=== PATIENT | female | born 1950 | race Caucasian/White ===

== ENCOUNTER 2017-08-15 17:32 | Emergency (ER) | payer MEDICARE ==
[~2017-08-15] VITALS: Ht 162.6 cm; Wt 72.6 kg
[~2017-08-15 17:32] MED LIST: ASP81CT; ASP81CT PO; CLOP75TA PO; GNT.3OP5 OP; LISI10TA PO; LISI20TA; LOVA20TA63; METF-380; METO25TA PO; SIMV20TA3 PO
--- OUTSIDE RECORDS SUMMARY | 2017-08-15 17:38 | XMS REPORT | Continuity of Care Document ---
Author Author [facility] Organization [facility] Address Unknown Phone Unavailable Allergies Active Description Code Type Severity Reaction Onset Reported/Identified Relationship to Patient Clinical Status Yes NKANo Known Allergies NKA Miscellaneous Allergy Mild N/A 07/24/2009 Medications There is no data. Problems Date Dx Coded Attending Type Code Diagnosis Diagnosed By 05/03/2008 250.00 DIABETES II CONTROLLED 05/03/2008 401.1 HYPERTENSION, BENIGN ESSENTIAL 05/03/2008 250.00 DIABETES II CONTROLLED 05/03/2008 401.1 HYPERTENSION, BENIGN ESSENTIAL 05/03/2008 YI CHACON DO 250.00 DIABETES II CONTROLLED 05/03/2008 YI CHACON DO 401.1 HYPERTENSION, BENIGN ESSENTIAL 05/03/2008 ASAEL WOMACK APRN S 250.00 DIABETES II CONTROLLED 05/03/2008 ASAEL WOMACK APRN 401.1 HYPERTENSION, BENIGN ESSENTIAL 05/03/2008 RADAMES MUÑOZ APRN R 250.00 DIABETES II CONTROLLED 05/03/2008 RADAMES MUÑOZ APRN R 401.1 HYPERTENSION, BENIGN ESSENTIAL 05/03/2008 YI CHACON DO K 250.00 DIABETES II CONTROLLED 05/03/2008 YI CHACON DO K 401.1 HYPERTENSION, BENIGN ESSENTIAL 05/03/2008 JOSE ALBERTO STALLINGS APRN 250.00 DIABETES II CONTROLLED 05/03/2008 JOSE ALBERTO STALLINGS APRN 401.1 HYPERTENSION, BENIGN ESSENTIAL 05/10/2008 716.90 ARTHRITIS/ ARTHROPATHY, UNSPECIFIED 05/10/2008 716.90 ARTHRITIS/ ARTHROPATHY, UNSPECIFIED 05/10/2008 YI CHACON DO 716.90 ARTHRITIS/ ARTHROPATHY, UNSPECIFIED 05/10/2008 ASAEL WOMACK APRN S 716.90 ARTHRITIS/ ARTHROPATHY, UNSPECIFIED 05/10/2008 RADAMES MUÑOZ APRN R 716.90 ARTHRITIS/ ARTHROPATHY, UNSPECIFIED 05/10/2008 YI CHACON DO 716.90 ARTHRITIS/ ARTHROPATHY, UNSPECIFIED 05/10/2008 JOSE ALBERTO STALLINGS APRN 716.90 ARTHRITIS/ ARTHROPATHY, UNSPECIFIED 05/19/2008 724.5 BACKACHE UNSPECIFIED 05/19/2008 724.5 BACKACHE UNSPECIFIED 05/19/2008 INES ALBARADO YI K 724.5 BACKACHE UNSPECIFIED 05/19/2008 ASALE WOMACK APRN S 724.5 BACKACHE UNSPECIFIED 05/19/2008 RADAMES MUÑOZ APRN R 724.5 BACKACHE UNSPECIFIED 05/19/2008 INES ALBARADO YI K 724.5 BACKACHE UNSPECIFIED 05/19/2008 JOSE ALBERTO STALLINGS APRN 724.5 BACKACHE UNSPECIFIED 09/27/2008 272.0 PURE HYPERCHOLESTEROLEMIA 09/27/2008 272.0 PURE HYPERCHOLESTEROLEMIA 09/27/2008 INES ALBARADO YI K 272.0 PURE HYPERCHOLESTEROLEMIA 09/27/2008 ASAEL WOMACK APRN 272.0 PURE HYPERCHOLESTEROLEMIA 09/27/2008 RADAMES MUÑOZ APRN 272.0 PURE HYPERCHOLESTEROLEMIA 09/27/2008 MARCELA CHACON DOA K 272.0 PURE HYPERCHOLESTEROLEMIA 09/27/2008 JOSE ALBERTO STALLINGS APRN 272.0 PURE HYPERCHOLESTEROLEMIA 12/29/2008 477.9 RHINITIS 12/29/2008 477.9 RHINITIS 12/29/2008 CHACON DO, YI K 477.9 RHINITIS 12/29/2008 LA WOMACK APRNA S 477.9 RHINITIS 12/29/2008 RADAMES MUÑOZ APRN R 477.9 RHINITIS 12/29/2008 CHACON DO YI K 477.9 RHINITIS 12/29/2008 JOSE ALBERTO STALLINGS APRN 477.9 RHINITIS 01/30/2009 780.79 OTHER MALAISE AND FATIGUE 01/30/2009 780.79 OTHER MALAISE AND FATIGUE 01/30/2009 CHACON DO YI K 780.79 OTHER MALAISE AND FATIGUE 01/30/2009 ASAEL WOMACK APRN S 780.79 OTHER MALAISE AND FATIGUE 01/30/2009 RADAMES MUÑOZ APRN R 780.79 OTHER MALAISE AND FATIGUE 01/30/2009 CHACON DO YI K 780.79 OTHER MALAISE AND FATIGUE 01/30/2009 JOSE ALBERTO STALLINGS APRN 780.79 OTHER MALAISE AND FATIGUE 03/13/2009 611.72 Breast Palpation Mass 03/13/2009 V72.31 Pelvic Exam ( internal) 03/13/2009 611.72 Breast Palpation Mass 03/13/2009 V72.31 Pelvic Exam ( internal) 03/13/2009 CHACON DOMARCELAA K 611.72 Breast Palpation Mass 03/13/2009 CHACON DO, YI K V72.31 Pelvic Exam (internal) 03/13/2009 ASAEL WOMACK APRN S 611.72 Breast Palpation Mass 03/13/2009 BRITTANY WOMACK APRNNDA S V72.31 Pelvic Exam (internal) 03/13/2009 JOHN MUÑOZ APRNINA R 611.72 Breast Palpation Mass 03/13/2009 WANDA DENISN, RADAMES R V72.31 Pelvic Exam (internal) 03/13/2009 MARCELA CHACON DOA K 611.72 Breast Palpation Mass 03/13/2009 CHACON DO YI K V72.31 Pelvic Exam (internal) 03/13/2009 JOSE ALBERTO STALLINGS APRN 611.72 Breast Palpation Mass 03/13/2009 JOSE ALBERTO STALLINGS APRN V72.31 Pelvic Exam (internal) 08/04/2009 782.1 Skin: A Rash [ as Sx] 08/04/2009 782.1 Skin: A Rash [ as Sx] 08/04/2009 YI CHACON DO K 782.1 Skin: A Rash [as Sx] 08/04/2009 ASAEL WOMACK APRN S 782.1 Skin: A Rash [as Sx] 08/04/2009 RADAMES MUÑOZ APRN R 782.1 Skin: A Rash [as Sx] 08/04/2009 YI CHACON DO K 782.1 Skin: A Rash [as Sx] 08/04/2009 JOSE ALBERTO STALLINGS APRN T 782.1 Skin: A Rash [as Sx] 02/16/2011 682.4 Cellulitis And Abscess Of Hand Except Fingers And Thumb 02/16/2011 682.4 Cellulitis And Abscess Of Hand Except Fingers And Thumb 02/16/2011 YI CHACON DO K 682.4 Cellulitis And Abscess Of Hand Except Fingers And Thumb 02/16/2011 ASAEL WOMACK APRN S 682.4 Cellulitis And Abscess Of Hand Except Fingers And Thumb 02/16/2011 JOHN MUÑOZ APRNINA R 682.4 Cellulitis And Abscess Of Hand Except Fingers And Thumb 02/16/2011 MARCELA CHACON DOA K 682.4 Cellulitis And Abscess Of Hand Except Fingers And Thumb 02/16/2011 JOSE ALBERTO STALLINGS APRN 682.4 Cellulitis And Abscess Of Hand Except Fingers And Thumb 02/19/2011 686.9 Unspecified Local Infection Of Skin And Subcutaneous Tissue 02/19/2011 686.9 Unspecified Local Infection Of Skin And Subcutaneous Tissue 02/19/2011 MARCELA CHACON DOA K 686.9 Unspecified Local Infection Of Skin And Subcutaneous Tissue 02/19/2011 ASAEL WOMACK APRN S 686.9 Unspecified Local Infection Of Skin And Subcutaneous Tissue 02/19/2011 RADAMES MUÑOZ APRN R 686.9 Unspecified Local Infection Of Skin And Subcutaneous Tissue 02/19/2011 MARCELA CHACON DOA K 686.9 Unspecified Local Infection Of Skin And Subcutaneous Tissue 02/19/2011 JOSE ALBERTO STALLINGS APRN 686.9 Unspecified Local Infection Of Skin And Subcutaneous Tissue 05/09/2011 V74.1 Tb Screening 05/09/2011 V74.1 Tb Screening 05/09/2011 MARCELA CHACON DOA K V74.1 Tb Screening 05/09/2011 ASAEL WOMACK APRN S V74.1 Tb Screening 05/09/2011 RADAMES MUÑOZ APRN R V74.1 Tb Screening 05/09/2011 MARCELA CHACON DOA K V74.1 Tb Screening 05/09/2011 JOSE ALBERTO STALLINGS APRN V74.1 Tb Screening 10/16/2011 296.90 MOOD DISORDER 10/16/2011 799.22 IRRITIBILITY 10/16/2011 V68.1 ISSUE OF REPEAT PRESCRIPTIONS 10/16/2011 296.90 MOOD DISORDER 10/16/2011 799.22 IRRITIBILITY 10/16/2011 V68.1 ISSUE OF REPEAT PRESCRIPTIONS 10/16/2011 MARCELA CHACON DOA K 296.90 MOOD DISORDER 10/16/2011 MARCELA CHACON DOA K 799.22 IRRITIBILITY 10/16/2011 CHACON DO YI K V68.1 ISSUE OF REPEAT PRESCRIPTIONS 10/16/2011 ASAEL WOMACK APRN S 296.90 MOOD DISORDER 10/16/2011 ASAEL WOMACK APRN S 799.22 IRRITIBILITY 10/16/2011 ASAEL WOMACK APRN S V68.1 ISSUE OF REPEAT PRESCRIPTIONS 10/16/2011 RADAMES MUÑOZ APRN R 296.90 MOOD DISORDER 10/16/2011 RADAMES MUÑOZ APRN R 799.22 IRRITIBILITY 10/16/2011 RADAMES MUÑOZ APRN R V68.1 ISSUE OF REPEAT PRESCRIPTIONS 10/16/2011 MARCELA CHACON DOA K 296.90 MOOD DISORDER 10/16/2011 MARCELA CHACON DOA K 799.22 IRRITIBILITY 10/16/2011 YI CHACON DO K V68.1 ISSUE OF REPEAT PRESCRIPTIONS 10/16/2011 JOSE ALBERTO STALLINGS APRN 296.90 MOOD DISORDER 10/16/2011 JOSE ALBERTO STALLINGS APRN 799.22 IRRITIBILITY 10/16/2011 JOSE ALBERTO STALLINGS APRN V68.1 ISSUE OF REPEAT PRESCRIPTIONS 01/03/2012 380.10 OTITIS EXTERNA LEFT 01/03/2012 380.4 CERUMEN IMPACTION 01/03/2012 380.10 OTITIS EXTERNA LEFT 01/03/2012 380.4 CERUMEN IMPACTION 01/03/2012 YI CHACON DO K 380.10 OTITIS EXTERNA LEFT 01/03/2012 YI CHACON DO K 380.4 CERUMEN IMPACTION 01/03/2012 ASAEL WOMACK APRN S 380.10 OTITIS EXTERNA LEFT 01/03/2012 ASAEL WOMACK APRN S 380.4 CERUMEN IMPACTION 01/03/2012 RADAMES MUÑOZ APRN R 380.10 OTITIS EXTERNA LEFT 01/03/2012 RADAMES MUÑOZ APRN R 380.4 CERUMEN IMPACTION 01/03/2012 YI CHACON DO K 380.10 OTITIS EXTERNA LEFT 01/03/2012 YI CHACON DO K 380.4 CERUMEN IMPACTION 01/03/2012 JOSE ALBERTO STALLINGS APRN 380.10 OTITIS EXTERNA LEFT 01/03/2012 JOSE ALBERTO STALLINGS APRN 380.4 CERUMEN IMPACTION 01/21/2012 381.81 DYSFUNCTION OF EUSTACHIAN TUBE 01/21/2012 381.81 DYSFUNCTION OF EUSTACHIAN TUBE 01/21/2012 YI CHACON DO 381.81 DYSFUNCTION OF EUSTACHIAN TUBE 01/21/2012 ASAEL WOMACK APRN S 381.81 DYSFUNCTION OF EUSTACHIAN TUBE 01/21/2012 RADAMES MUÑOZ APRN R 381.81 DYSFUNCTION OF EUSTACHIAN TUBE 01/21/2012 YI CHACON DO 381.81 DYSFUNCTION OF EUSTACHIAN TUBE 01/21/2012 JOSE ALBERTO STALLINGS APRN 381.81 DYSFUNCTION OF EUSTACHIAN TUBE 04/14/2013 372.30 CONJUNCTIVITIS UNSPECIFIED 04/14/2013 372.30 CONJUNCTIVITIS UNSPECIFIED 04/14/2013 YI CHACON DO K 372.30 CONJUNCTIVITIS UNSPECIFIED 04/14/2013 ASAEL WOMACK APRN S 372.30 CONJUNCTIVITIS UNSPECIFIED 04/14/2013 RADAMES MUÑOZ APRN R 372.30 CONJUNCTIVITIS UNSPECIFIED 04/14/2013 YI CHACON DO K 372.30 CONJUNCTIVITIS UNSPECIFIED 04/14/2013 JOSE ALBERTO STALLINGS APRN 372.30 CONJUNCTIVITIS UNSPECIFIED 05/05/2013 709.9 UNSPECIFIED DISORDER OF SKIN AND SUBCUTANEOUS TISSUE 05/05/2013 YI CHACON DO K 709.9 UNSPECIFIED DISORDER OF SKIN AND SUBCUTANEOUS TISSUE 05/05/2013 ASAEL WOMACK APRN S 709.9 UNSPECIFIED DISORDER OF SKIN AND SUBCUTANEOUS TISSUE 05/05/2013 RADAMES MUÑOZ APRN R 709.9 UNSPECIFIED DISORDER OF SKIN AND SUBCUTANEOUS TISSUE 05/05/2013 YI CHACON DO 709.9 UNSPECIFIED DISORDER OF SKIN AND SUBCUTANEOUS TISSUE 05/05/2013 JOSE ALBERTO STALLINGS APRN 709.9 UNSPECIFIED DISORDER OF SKIN AND SUBCUTANEOUS TISSUE 03/29/2014 ASAEL WOMACK APRN S 053.9 HERPES ZOSTER (SHINGLES) 03/29/2014 RADAMES MUÑOZ APRN R 053.9 HERPES ZOSTER (SHINGLES) 03/29/2014 YI CHACON DO 053.9 HERPES ZOSTER (SHINGLES) 03/29/2014 JOSE ALBERTO STALLINGS APRN 053.9 HERPES ZOSTER (SHINGLES) 06/15/2014 RADAMES MUÑOZ APRN R 412 OLD MYOCARDIAL INFARCTION 06/15/2014 YI CHACON DO K 412 OLD MYOCARDIAL INFARCTION 06/15/2014 JOSE ALBERTO STALLINGS APRN 412 OLD MYOCARDIAL INFARCTION 08/03/2014 YI CHACON DO K 272.4 DYSLIPIDEMIA 08/03/2014 IY CHACON DO K 401.9 HYPERTENSION, UNSPECIFIED ESSENTIAL 08/03/2014 INES ALBARADO, YI K 414.00 CAD 08/03/2014 YI CHACON DO K 433.10 CAROTID 08/03/2014 JOSE ALBERTO STALLINGS APRN 272.4 DYSLIPIDEMIA 08/03/2014 JOSE ALBERTO STALLINGS APRN 401.9 HYPERTENSION, UNSPECIFIED ESSENTIAL 08/03/2014 JOSE ALBERTO STALLINGS APRN T 414.00 CAD 08/03/2014 JOSE ALBERTO STALLINGS APRN 433.10 CAROTID 12/17/2014 JOSE ALBERTO STALLINGS APRN 682.9 CELLULITIS AND ABSCESS OF UNSPECIFIED SITES 12/11/2016 MAGGIE CASTILLO MD B37.3 Candidiasis of vulva and vagina 12/11/2016 MAGGIE CASTILLO MD D64.9 Anemia, unspecified 12/11/2016 MAGGIE CASITLLO MD E11.9 Type 2 diabetes mellitus without complications 12/11/2016 MAGGIE CASTILLO MD E88.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, NEC 12/11/2016 MAGGIE CASTILLO MD F01.51 Vascular dementia with behavioral disturbance 12/11/2016 MAGGIE CASTILLO MD F31.64 Bipolar disord, crnt episode mixed, severe, w psych features 12/11/2016 MAGGIE CASTILLO MD F41.9 Anxiety disorder, unspecified 12/11/2016 MAGGIE CASTILLO MD G47.00 Insomnia, unspecified 12/11/2016 MAGGIE CASTILLO MD M54.5 Low back pain 12/11/2016 MAGGIE CASTILLO MD R45.1 Restlessness and agitation 07/10/2017 KYLER DASILVA MD Ot E11.9 TYPE 2 DIABETES MELLITUS WITHOUT COMPLIC 07/10/2017 KYLER DASILVA MD, Ot E78.00 PURE HYPERCHOLESTEROLEMIA, UNSPECIFIED 07/10/2017 KYLER DASILVA MD, Ot F02.81 DEMENTIA IN OTH DISEASES CLASSD ELSWHR W 07/10/2017 KYLER DASILVA MD, Ot F03.90 UNSPECIFIED DEMENTIA WITHOUT BEHAVIORAL 07/10/2017 KYLER DASILVA MD, Ot G30.9 ALZHEIMER'S DISEASE, UNSPECIFIED 07/10/2017 BROWN MD, KYLER D Ot I10 ESSENTIAL (PRIMARY) HYPERTENSION 07/10/2017 KYLER DASILVA MD, Ot I25.10 ATHSCL HEART DISEASE OF [place] CORONARY 07/10/2017 KYLER DASILVA MD, Ot N39.0 URINARY TRACT INFECTION, SITE NOT SPECIF 07/10/2017 KYLER DASILVA MD, Ot R46.4 SLOWNESS AND POOR RESPONSIVENESS 07/10/2017 KYLER DASILVA MD, Ot Z79.82 CUSTOMS PORT DIRECTOR (CURRENT) USE OF ASPIRIN Procedures Code Description Performed By Performed On Cardiolog Hesham, Ali 05/06/2013 [id number] US CAROTID DOPPLER 08/03/2014 [id number] OXIMETRY 08/03/2014 Results Test Result Range Complete urinalysis with reflex to culture - 07/10/17 11:13 Urine color determination ELENA NRG Urine clarity determination CLEAR NRG Urine pH measurement by test strip 5 5-9 Specific gravity of urine by test strip 1.025 1.016- 1.022 Urine protein assay by test strip, semi-quantitative NEGATIVE NEGATIVE Urine glucose detection by automated test strip NEGATIVE NEGATIVE Erythrocytes detection in urine sediment by light microscopy NEGATIVE NEGATIVE Urine ketones detection by automated test strip NEGATIVE NEGATIVE Urine nitrite detection by test strip NEGATIVE NEGATIVE Urine total bilirubin detection by test strip 1+ NEGATIVE Urine urobilinogen measurement by automated test strip (mass/volume) 4 mg/dL NORMAL Urine leukocyte esterase detection by dipstick 1+ NEGATIVE Automated urine sediment erythrocyte count by microscopy (number/high power field) NONE NRG Automated urine sediment leukocyte count by microscopy (number/high power field ) [HPF] NRG Bacteria detection in urine sediment by light microscopy TRACE NRG Squamous epithelial cells detection in urine sediment by light microscopy 2-5 NRG Crystals detection in urine sediment by light microscopy PRESENT NRG Casts detection in urine sediment by light microscopy NONE NRG Mucus detection in urine sediment by light microscopy NEGATIVE NRG Complete urinalysis with reflex to culture YES NRG Amorphous sediment detection in urine sediment by light microscopy FEW CAROL URATES NRG Bacterial urine culture - 07/10/17 11:13 Bacterial urine culture NG NRG Complete blood count (CBC) with automated white blood cell (WBC) differential - 07/10/17 11:27 Blood leukocytes automated count (number/volume) 8.2 10*3/uL 4.3-11.0 Blood erythrocytes automated count (number/volume) 4.30 10*6/uL 4.35-5.85 Venous blood hemoglobin measurement (mass/volume) 13.7 g/dL 11.5-16.0 Blood hematocrit (volume fraction) 41 % 35-52 Automated erythrocyte mean corpuscular volume 96 [foz_us] 80-99 Automated erythrocyte mean corpuscular hemoglobin (mass per erythrocyte) 32 pg 25-34 Automated erythrocyte mean corpuscular hemoglobin concentration measurement ( mass/volume) 33 g/dL 32-36 Automated erythrocyte distribution width ratio 13.6 % 10.0-14.5 Automated blood platelet count (count/volume) 332 10*3/uL 130-400 Automated blood platelet mean volume measurement 10.5 [foz_us] 7.4-10.4 Automated blood neutrophils/100 leukocytes 55 % 42-75 Automated blood lymphocytes/100 leukocytes 33 % 12-44 Blood monocytes/100 leukocytes 10 % 0-12 Automated blood eosinophils/100 leukocytes 2 % 0-10 Automated blood basophils/100 leukocytes 0 % 0-10 Blood neutrophils automated count (number/volume) 4.5 10*3 1.8-7.8 Blood lymphocytes automated count (number/volume) 2.7 10*3 1.0-4.0 Blood monocytes automated count (number/volume) 0.8 10*3 0.0-1.0 Automated eosinophil count 0.2 10*3/uL 0.0-0.3 Automated blood basophil count (count/volume) 0.0 10*3/uL 0.0-0.1 Comprehensive metabolic panel - 07/10/17 11:27 Serum or plasma sodium measurement (moles/volume) 141 mmol/L 135-145 Serum or plasma potassium measurement (moles/volume) 4.0 mmol/L 3.6-5.0 Serum or plasma chloride measurement (moles/volume) 103 mmol/L 98-107 Carbon dioxide 28 mmol/L 21-32 Serum or plasma anion gap determination (moles/volume) 10 mmol/L 5-14 Serum or plasma urea nitrogen measurement (mass/volume) 24 mg/dL 7-18 Serum or plasma creatinine measurement (mass/volume) 0.78 mg/dL 0.60-1.30 Serum or plasma urea nitrogen/creatinine mass ratio 31 NRG Serum or plasma creatinine measurement with calculation of estimated glomerular filtration rate > NRG Serum or plasma glucose measurement (mass/volume) 118 mg/dL 70-105 Serum or plasma calcium measurement (mass/volume) 10.0 mg/dL 8.5-10.1 Serum or plasma total bilirubin measurement (mass/volume) 1.4 mg/dL 0.1-1.0 Serum or plasma alkaline phosphatase measurement (enzymatic activity/volume) 60 U/L 40-136 Serum or plasma aspartate aminotransferase measurement (enzymatic activity/ volume) 13 U/L 5-34 Serum or plasma alanine aminotransferase measurement (enzymatic activity/volume ) 9 U/L 0-55 Serum or plasma protein measurement (mass/volume) 6.8 g/dL 6.4-8.2 Serum or plasma albumin measurement (mass/volume) 3.6 g/dL 3.2-4.5 Encounters ACCT No. Visit Date/Time Discharge Status Pt. Type Provider Facility Loc./Unit Complaint [id number] 07/10/2017 10:47:00 07/10/2017 13:58:00 DIS Emergency BROWN KIRAN, KYLER Piedra [facility] ER UNRESPONSIVE [id number] 05/28/2013 09:31:00 05/28/2013 23:59:59 CLS Outpatient [id number] 04/21/2013 21:46:00 04/24/2013 18:20:00 DIS Outpatient [id number] 08/15/2017 17:32:00 ACT Emergency REY KIRAN, MARY JO Porter [facility] ER FALL [id number] 12/17/2014 12:28:00 12/17/2014 23:59:59 CLS Outpatient JOSE ALBERTO STALLINGS APRN [id number] 08/03/2014 10:50:00 08/03/2014 23:59:59 CLS Outpatient YI CHACON DO [id number] 06/15/2014 08:59:00 06/15/2014 23:59:59 CLS Outpatient RADAMES MUÑOZ APRN [id number] 03/29/2014 17:07:00 03/29/2014 23:59:59 CLS Outpatient ASAEL WOMACK APRN [id number] 05/17/2013 12:42:00 05/17/2013 23:59:59 CLS Outpatient YI CHACON DO [id number] 05/05/2013 09:25:00 Document Registration [id number] 04/14/2013 14:02:00 Document Registration [id number] 11/16/2016 19:41:00 12/11/2016 15:20:00 DIS Inpatient JONATHAN KIRAN, MAGGIE [facility]brano [facility]
[2017-08-15] MEDS ORDERED: ALPRAZolam 0.25 MG (XANAX) TAB PO ONE (18:00)
[2017-08-15] MEDS ORDERED: LIDOCAINE 2% 20 ML (XYLOCAINE) VIAL INJ ONE (18:00)
[2017-08-15] MEDS ORDERED: TETANUS,DIPTH,PERTUSS P/F (BOOSTRIX) 0.5 ML VIAL IM ONE (18:00)
--- NOTE | 2017-08-15 18:19 | ED Fall/Injury ---
General Chief Complaint: Trauma-Non Activation Stated Complaint: FALL Source: patient Exam Limitations: no limitations History of Present Illness Time seen by provider: 18:18 Initial Comments History of reports of a fall striking her forehead. She has a laceration to the right lateral eyebrow. Uncertain as whether or not there is also consciousness. Patient is rather advanced in her dementia. She is a DO NOT RESUSCITATE status. She is on hospice with [facility]. Occurred: just prior to arrival Severity: mild Associated Symptoms (Fall): Denies Symptoms Allergies and Home Medications Allergies Coded Allergies: NKANo Known Allergies (Unverified Allergy, Mild, 07/24/09) Home Medications Aspirin 81 Mg Chew, 81 MG PO DAILY, (Reported) Clopidogrel Bisulfate 75 Mg Tablet, 75 MG PO DAILY, (Reported) Lisinopril 10 Mg Tablet, 10 MG PO BID, (Reported) Metoprolol Succinate 25 Mg Tab.sr.24h, 25 MG PO DAILY, (Reported) Simvastatin 20 Mg Tablet, 20 MG PO DAILY, (Reported) Constitutional: see HPI Eyes: No Symptoms Reported Ears, Nose, Mouth, Throat: no symptoms reported Respiratory: no symptoms reported Cardiovascular: no symptoms reported Genitourinary: no symptoms reported Musculoskeletal: no symptoms reported Skin: no symptoms reported Psychiatric/Neurological: No Symptoms Reported Past Cbqmgcz-Vcybfc-Yjpcsi Hx Patient Social History Alcohol Use: Denies Use Recreational Drug Use: No Smoking Status: Never a Smoker Recent Hopitalizations: Yes ([facility] [place]) Physical Abuse: No Sexual Abuse: No Mistreated: No Fear: No Immunizations Up To Date Tetanus Booster (TDap): Unknown Surgeries History of Surgeries: No Respiratory History of Respiratory Disorde: No Cardiovascular History of Cardiac Disorders: Yes Cardiac Disorders: Coronary Artery Disease, High Cholesterol Neurological History of Neurological Disord: Yes Neurological Disorders: Dementia Genitourinary History of Genitourinary Disor: Yes Genitourinary Disorders: UTI-Chronic Gastrointestinal History of Gastrointestinal Di: No Gastrointestinal Disorders: Gastroesophageal Reflux Musculoskeletal History of Musculoskeletal Dis: No Endocrine History of Endocrine Disorders: Yes Endocrine Disorders: Diabetes, Non-Insulin dep Psychosocial History of Psychiatric Problem: Yes (behavioral disturbance) Behavioral Health Disorders: Depression Suicide Risk Score: 0 Blood Transfusions History of Blood Disorders: No Family Medical History Significant Family History: Heart Disease, Hypertension Physical Exam Vital Signs Capillary Refill : General Appearance: WD/WN, no apparent distress HEENT: PERRL/EOMI, normal ENT inspection, other (1.5 cm laceration to the right eyebrow) Neck: non-tender, full range of motion Respiratory: no respiratory distress, no accessory muscle use Gastrointestinal: normal bowel sounds, non tender, soft Neurologic/Psychiatric: alert Skin: normal color, warm/dry Preston Coma Score Best Eye Response: (4) Open Spontaneously Best Verbal Response: (4) Confused Conversation Best Motor Response: (5) Localizes to Pain Preston Total: 15 (13) Laceration Repair : Wound Location: Face Wound Length (cm): 2 Wound's Depth, Shape: linear, sub Q Irrigated w/ Saline (ccs): 3 Anesthesia: 1% Lidocaine Volume Anesthetic (ccs): 2 Suture: Prolene Suture Size: 5-0 Number of Sutures: 1 Progress . Anesthetized with 2 mL of 1 percent lidocaine without epinephrine. Wound and scrubbed with chlorhexidine/sitting solution. Wound then closed with 1 Closed with one continuous suture. Progress/Results/Core Measures Results/Orders My Orders Orders - KHUSHBOO SKAGGS APRN DiphtKristina(Acell),Tet Adult (Boostrix (08/15/17 18:00) Lidocaine 2% Injection 20 Ml (Xylocaine (08/15/17 18:00) Pelvis (08/15/17 17:50) Alprazolam Tablet (Xanax Tablet) (08/15/17 18:00) Ct Head Wo (08/15/17 17:50) Medications Given in ED Current Medications Medications Dose Ordered Sig/Alvaro Route Start Time Stop Time Status Last Admin Dose Admin Alprazolam 0.5 mg ONCE ONCE PO 08/15/17 18:00 08/15/17 18:01 DC 08/15/17 18:18 0.5 MG Diphtheria/ Tetanus/Acell Pertussis 0.5 ml ONCE ONCE IM 08/15/17 18:00 08/15/17 18:01 DC 08/15/17 18:18 0.5 ML Departure Impression Impression: Primary Impression: Eyebrow laceration Additional Impression: Head injury Disposition: 01 HOME, SELF-CARE Condition: Stable Departure-Patient Inst. Decision time for Depature: 18:38 Referrals: PAKO RAGSDALE MD (PCP) Primary Care Physician Patient Instructions: Laceration Repair With Stitches (DC) Add. Discharge Instructions: 1. Have the stitches removed in about 7 days. All discharge instructions reviewed with patient and/or family. Voiced understanding. KHUSHBOO SKAGGS BOARDING MOTHER Aug 15, 2017 18:19
--- NOTE | 2017-08-15 19:24 | Diagnostic Imaging Report ---
EXAMINATION: Pelvis, single view. COMPARISON: None. HISTORY: 67-year-old female, fall. FINDINGS: There are limitations of exam relating to patient positioning. There is significantly limited evaluation of the left proximal femur in particular. The hips are not obviously dislocated. There is no abnormal widening of the pubic symphysis or sacroiliac joints. The bones do appear somewhat demineralized. There are mild degenerative changes of the lumbar spine. No definite radiographically apparent fracture is identified. There are vascular calcifications. IMPRESSION: 1. Bone demineralization with additional limitations of the exam relating to patient positioning. Particularly if there is strong suspicion for fracture, further evaluation with cross-sectional imaging is recommended. 2. No definite acute fracture identified radiographically. Dictated by: Dictated on workstation # [id number]
--- NOTE | 2017-08-15 19:27 | Diagnostic Imaging Report ---
PROCEDURE: CT head without contrast. TECHNIQUE: Multiple contiguous axial images were obtained through the brain without the use of intravenous contrast. INDICATION: Fall. The exam compared 04/21/2013 FINDINGS: Cerebral cortical atrophy as a chronic finding has progressed in magnitude from the prior. There is chronic periventricular white matter small vessel sequelae mild and not substantially changed. There is atherosclerotic vascular calcifications. Ventricular calibers are congruent with the degree of sulcation; this is believed to be atrophy and no drea hydrocephalus present. There are no abnormal extra-axial fluid collections and there is no intracerebral hemorrhage. There is no calvarial fracture deformity. There is no hemo-sinus. IMPRESSION: Progressive cerebral cortical atrophy. No hemorrhage or fracture deformity. Dictated by: Dictated on workstation # [id number]
[2017-08-15 20:40] VITALS: BP 140/90
== END 2017-08-15 20:42 | disposition home or self-care (01) ==
LOC: ER 17:32 → EDUNIT# 17:32 → ER 20:42
DX: S09.90XA Unspecified injury of head, initial encounter (principal); S01.111A Laceration without foreign body of right eyelid and periocular area, initial encounter; F03.90 Unspecified dementia, unspecified severity, without behavioral disturbance, psychotic disturbance, mood disturbance, and anxiety; I25.10 Atherosclerotic heart disease of native coronary artery without angina pectoris; E78.00 Pure hypercholesterolemia, unspecified; F32.9 Major depressive disorder, single episode, unspecified; K21.9 Gastro-esophageal reflux disease without esophagitis; Z87.440 Personal history of urinary (tract) infections; Z82.49 Family history of ischemic heart disease and other diseases of the circulatory system; Z23 Encounter for immunization; Z79.82 Long term (current) use of aspirin; W01.10XA Fall on same level from slipping, tripping and stumbling with subsequent striking against unspecified object, initial encounter
CPT/HCPCS: 12011; 70450; 72170; 90715

== ENCOUNTER → 2017-08-27 | Outpatient (CLI) | payer MEDICARE ==
[2017-08-27 12:36] LABS: BILIRUBIN,URINE NEGATIVE (NEGATIVE); KETONES,URINE NEGATIVE (NEGATIVE); LEUKOCYTE ESTERASE ,URINE 3+ (NEGATIVE); NITRITE,URINE NEGATIVE (NEGATIVE); PH,URINE 7 (5-9); PROTEIN,URINE 1+ (NEGATIVE); UROBILINOGEN,URINE 4 MG/DL (NORMAL)
[2017-08-27 12:43] LABS: WBC,URINE >100 /HPF
== END ==
PROVIDERS: ATTEND Internal Medicine
DX: R45.1 Restlessness and agitation (principal); R82.99 Other abnormal findings in urine
CPT/HCPCS: 81000; 87088; 87186